=== PATIENT | male | born 2000 | race Caucasian/White ===

== ENCOUNTER 2021-11-16 15:01 | Inpatient (IN) | payer SELFPAY ==
[2021-11-16 15:24] VITALS: BP 147/92; PULSE 90; RESP 16; TEMP 36.7; O2SAT 95; BMI 20.3
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
[2021-11-16 15:56] LABS: Basophils % 0.3 %; Eosinophils % 0.2 %; Hematocrit 42.4 % (42.0-52.0); Hemoglobin 15.1 g/dL (11.7-16.6); Lymphocytes # 1.2 10^3/uL (1.5-6.5); Lymphocytes % 12.4 %; Mean Corpuscular HGB Conc 35.6 g/dL (30.0-36.0); Mean Corpuscular Hemoglobin 29.6 pg (28.0-34.0); Mean Corpuscular Volume 83.1 fl (80-94); Mean Platelet Volume 10.4 fL (7.4-10.4); Monocytes # 0.6 10^3/uL (0.2-0.9); Monocytes % 6.2 %; Neutrophils # 7.89 10^3/uL (1.8-8.0); Neutrophils % 80.6 %; Nucleated Red Blood Cells % 0 %; Platelet Count 213 10^3/cmm (130-400); White Blood Count 9.8 10^3/uL (4.5-13.0)
[2021-11-16 16:32] LABS: Alanine Aminotransferase 15 U/L (0-41); Albumin Level 4.8 g/dL (3.5-5.2); Alkaline Phosphatase 105 IU/L (40-130); Anion Gap 16.9 (5-19); Aspartate Amino Transferase 22 U/L (0-40); Blood Urea Nitrogen 9 mg/dL (6-20); Calcium 9.7 mg/dL (8.5-10.5); Carbon Dioxide 23 mmol/L (22-29); Chloride 103 mmol/L (98-107); Globulin 3.1 g/dL (1.3-4.6); Glomerular Filtration Rate 124.5 mL/min (90-130); Glucose 101 mg/dL (65-115); Lipase 17 U/L (13-60); Osmolality Calculated 287 mOsm/kg (285-295); Potassium 3.9 mmol/L (3.5-5.1); Sodium 139 mmol/L (136-145); Total Bilirubin 0.4 mg/dL (0.15-1.2); Total Protein 7.9 g/dL (6.6-8.7)
[2021-11-16 16:34] LABS: Add Urine Microscopic? NO; Charge for UA Resulting for Rev
[2021-11-16 16:40] LABS: Acetaminophen < 5.0 ug/mL (10-30); Salicylate < 0.3 mg/dL (3-10)
[2021-11-16 16:42] LABS: Bilirubin Urine Neg (Negative); Blood Urine Neg (Negative); Glucose Urine UA Norm (Normal); Ketones Urine Negative (Negative); Leukocyte Esterase Urine Negative (Negative); Nitrate Urine Negative (Negative); Protein Urine Neg (Negative); Specific Gravity, Urine 1.005 (1.005-1.030); Urine Appearance Clear (CLEAR); Urine Color Straw (Yellow); Urobilinogen Urine Norm (Negative); pH Urine 7 (5-7)
[2021-11-16 17:37] VITALS: BP 136/81; PULSE 109; RESP 16; TEMP 36.7; O2SAT 98
[2021-11-16] MEDS: hyDROXYzine 25 mg Capsule 50 MG PO (17:56)
[2021-11-16] MEDS: quetiapine 25 mg Tablet PO (17:56)
[2021-11-16] MEDS: trazodone 50 mg Tablet PO (20:20)
[2021-11-16 20:44] VITALS: BP 124/80; PULSE 132; RESP 18; TEMP 37; O2SAT 97
[2021-11-17 06:00] VITALS: BP 108/68; PULSE 97; RESP 18; TEMP 36.8; O2SAT 97
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
[2021-11-17] MEDS: quetiapine 25 mg Tablet PO (09:23)
[2021-11-17] MEDS: nicotine 21 mg Patch 1 PATCH TRANSDERMA (09:29)
[2021-11-17 14:00] VITALS: BP 116/56; PULSE 110; RESP 18; O2SAT 97
[2021-11-17 20:05] VITALS: BP 123/80; PULSE 84; RESP 17; O2SAT 97
[2021-11-17] MEDS: quetiapine 25 mg Tablet 50 MG PO (20:30)
[2021-11-17] MEDS: trazodone 50 mg Tablet PO (20:30)
--- NOTE | 2021-11-17 21:56 | PC.NURSE ---
PT REQUESTED TRAZADONE TO HELP HIM SLEEP. 50MG OF TRAZADONE WAS GIVEN.
[2021-11-18 06:00] VITALS: BP 114/75; PULSE 69; RESP 17; O2SAT 98
[2021-11-18] MEDS: quetiapine 25 mg Tablet PO (06:06)
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
[2021-11-18 07:41] VITALS: BP 114/75; PULSE 69; RESP 17; TEMP 37.1; O2SAT 98
--- NOTE | 2021-11-18 07:53 | PC.NURSE ---
DISCHARGE NOTE DISCHARGED WITH [facility], SHEET SIGNED THAT MEDS WERE RETURNED TO PT. LEFT WITH ALL PRESCRIPTIONS VIA MEDS TO BED. DISCHARGE TEACHING COMPLETED. ALL QUESTIONS ANSWERED AND SUPPORT VOICED. LEFT VIA [facility] AND GOING TO [place] PER PT. LEFT WITH ALL BELONGINGS.
== END 2021-11-18 07:52 | disposition home or self-care (01) | DRG 885 ==
LOC: ER 16:47 → NP 17:11
PROVIDERS: Admitting Provider Psychiatry & Neurology Psychiatry; Emergency Provider Emergency Medicine; Visit Provider Psychiatry & Neurology Psychiatry
DX: F33.9 Major depressive disorder, recurrent, unspecified (principal); R45.851 Suicidal ideations; F60.3 Borderline personality disorder; F90.9 Attention-deficit hyperactivity disorder, unspecified type; F43.12 Post-traumatic stress disorder, chronic; Z81.8 Family history of other mental and behavioral disorders; F19.11 Other psychoactive substance abuse, in remission
CPT/HCPCS: 36415; 80053; 80307; 81003; 83690; 85025; 97150; 97165; 99285